=== PATIENT | male | born 1955 | race Caucasian/White ===

== ENCOUNTER → 2024-03-15 14:11 | Outpatient (REF) | payer BC, SELFPAY | LOC: RAD 14:11 | PROVIDERS: ATTENDING PHYSICIAN Family Medicine | DX: Z87.820 Personal history of traumatic brain injury (principal) | CPT/HCPCS: 70450 ==

== ENCOUNTER → 2024-11-11 07:00 | Outpatient (REF) | payer BC, SELFPAY | LOC: MRI 07:00 | PROVIDERS: ATTENDING PHYSICIAN Psychiatry & Neurology Neurology; FAMILY PHYSICIAN Family Medicine | DX: R41.3 Other amnesia (principal) | CPT/HCPCS: 70551 ==